=== PATIENT | male | born 1950 | race Caucasian/White ===

== ENCOUNTER 2023-04-20 09:38 | Outpatient (CLI) | payer MEDICARE, OTHER ==
--- NOTE | 2023-04-20 10:14 | Sleep Patient Instructions ---
Sleep Center Visit Summary - Patient Visit Information Reason for Visit: Initial consultation - Patient Instructions Instructions Attached: Sleep Study, Sleep Clinic Visit Additional Instructions: You will be completing a sleep study, either an in-lab polysomnography (PSG) or home sleep study (HST). You will follow-up in the sleep care office after the sleep study is completed to hear the results and talk about therapy, if needed. You will be called by our office staff to schedule this appointment, but you may contact us with any questions. - Clinic Information Contact: [facility] [address] [place] [address] [email or web address] T: [phone]
--- NOTE | 2023-04-20 10:21 | SLEEP CARE CONSULTATION ---
Information from patient questionnaire entered by Lisbeth Griffin. I have reviewed and concur with the information entered by Lisbeth Griffin. This document represents the service I personally performed and the decisions made by me, Shira Olmedo ARNP. History of Present Illness Service Date and Time: 04/20/2023 0938 Reason for Visit: New patient, Previously diagnosed sleep apnea, Re-establish care Chief Complaint: reports: Snoring, Observed pauses in breathing, Frequent awakenings at night Date of Onset: 10YRS Usual bedtime: 1030PM Time it takes to fall asleep: 45MIN Snores at night: Yes Observed to quit breathing while asleep: Yes Sleeps alone due to snoring: Yes Number of times waking at night: 3 Reasons for waking at night: reports: Snoring, Bathroom. denies: Choking, Gasping for air Toss, Turn, or Twitch while sleeping: Yes Recalls having dreams: No Usually gets out of bed at: 07-0730 Feels refreshed in the morning: No Morning headache: No Sleepy or fatigued during the day: Yes (he gets sleepy when being sedentary) Ever fallen asleep while driving: No Takes day naps: No Dreams during day naps: No Prior sleep studies: Yes Year and Where: 2013 [facility] Additional HPI information: RUTH CARBONE was previously diagnosed to have severe, AHI 62.8, obstructive sleep apnea-hypopnea syndrome in 2013 here at [facility] and comes in today to re- establish care. He returns today with complaints of frequent night awakenings, snoring and observed pauses in breathing. He had been placed on a CPAP but has not been using this for years. He only used the CPAP for about 6-8 months. He states the headgear was uncomfortable and would wake up feeling short of air. He has Parkinson's that was diagnosed about 12 years ago. He and his have resume sharing the same bed and his sleep is being affected by her snoring and his snoring is waking her up. He would like to be able to sleep better and wake up feeling rested. He comes back now to see if things have improved for treatment of his sleep apnea and if there might be other options. 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 Patient is and lives in [place]. Have you smoked in the past 12 months: No Alcohol use: Yes Alcohol amount and frequency: 6 DRINKS A MONTH Caffeine use: Yes Caffeine amount and frequency: 1 cup daily Family History Family history of sleep disordered breathing: Yes Family Hx Sleep Apnea: Mother: Snoring, Father: Snoring Allergies and Home Medications Known drug allergies: No Drug allergies reviewed: Yes Home medication list reviewed: Yes (see updated list in EMR) Review of Systems Weight loss over past 5 years: 70, in last year Cardiovascular: reports: high blood pressure Respiratory: denies: shortness of breath Gastrointestinal: denies: heartburn Urinary: reports: frequency, urgency Neurological: denies: headaches, seizure Psychiatric: reports: anxiety, depression Ear/Nose/Throat: reports: nasal congestion, wisdom teeth removed. denies: tonsillectomy Endocrine: reports: increased urination. denies: thyroid disease Immunologic: denies: allergies to food or environment Physical Exam Vital signs obtained and entered by: LISBETH Stevens MA Blood Pressure: 128/66 (LEFT ARM) Cuff size: regular Heart Rate: 65 O2 Saturation: 98 Height: 6 ft 2.5 in Weight: 209 lb Body Mass Index: 26.4 BMI Classification: Overweight Neck circumference: 16 Mouth and throat: narrow oropharynx Soft palate: long Hard palate: normal Uvula: normal Uvula visualization: 0% Mallampati Class IV Tongue: normal in size Tonsils: small Neck: normal w/o lymphadenopathy or thyromegaly Heart: regular rate and rhythm Lungs: clear bilaterally Impression and Plan 1. Obstructive Sleep Apnea-Hypopnea Syndrome, severe. Also as suggested by a history of loud and irregular snoring, observed cessation of breath while asleep, frequent awakening during the night, unrefreshed sleep, and excessive daytime sleepiness. I recommend proceeding to polysomnography to confirm the diagnosis and to assess severity. If the patient has significant sleep disordered breathing, a manual CPAP titration study will also be performed to find the optimal treatment pressure. I informed the patient of what the sleep studies involve and after some discussion, obtained agreement to proceed. The pathophysiology of obstructive sleep apnea-hypopnea syndrome was discussed with the patient and health risks of cardiovascular and cerebrovascular disease if not treated. 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 Patient agreed to plan. * Schedule polysomnography. * Avoid long distance driving or driving when feeling sleepy. * Avoid alcohol, sedative and muscle relaxant around bedtime. * Attempt to lose weight. * Review instructions provided by trained office staff on how to prepare for the sleep study. * Return for follow-up after sleep study completed. Counseling Topics: Weight loss health impact Visit Type: In Office Time Spent with Patient (minutes): 30 Provider Statement: I spent 100% of the Face to Face Visit with the patient with greater than 50% spent counseling the patient and coordination of care.
[2023-04-20 10:30] VITALS: BP 128/66; O2SAT 98
== END 2023-04-20 09:39 | disposition home or self-care (01) ==
LOC: SC 09:38
PROVIDERS: ATTEND Nurse Practitioner Family
DX: G47.33 Obstructive sleep apnea (adult) (pediatric) (principal); G20 Parkinson's disease; E66.3 Overweight; Z68.26 Body mass index [BMI] 26.0-26.9, adult
CPT/HCPCS: 99203; G0463; 99212

== ENCOUNTER 2023-06-19 19:39 | Outpatient (CLI) | payer MEDICARE, OTHER | END 2023-06-19 19:40 | disposition home or self-care (01) | LOC: SC 19:39 | PROVIDERS: ATTEND Nurse Practitioner Family | DX: G47.33 Obstructive sleep apnea (adult) (pediatric) (principal); G47.61 Periodic limb movement disorder; E66.3 Overweight; Z68.26 Body mass index [BMI] 26.0-26.9, adult | CPT/HCPCS: 95810 ==

== ENCOUNTER 2023-07-13 09:25 | Outpatient (CLI) | payer MEDICARE, OTHER ==
--- NOTE | 2023-07-13 10:22 | Sleep Patient Instructions ---
Sleep Center Visit Summary - Patient Visit Information Reason for Visit: Sleep Study Followup - Patient Instructions Instructions Attached: Apnea Sleep Mouthpieces Additional Instructions: You have opted for an oral mandibular appliance with positional therapy to control your sleep apnea. A list of certified dentists in the area was provided for you to find a dentist to have your oral appliance made. Once you have the device, please call and make a follow up appointment. We need to see you after you have been using the appliance for a month. We will evaluate your response to therapy and order a follow up sleep study to check efficiency of treatment. Please call office to schedule a follow up appointment in the sleep care office one month after obtaining new device. - Clinic Information Contact: [facility] [address] [place] [address] [email or web address] T: [phone]
--- NOTE | 2023-07-13 10:27 | SLEEP CARE CONSULTATION ---
Information from patient questionnaire entered by Lorrie Griffin. I have reviewed and concur with the information entered by Lorrie Griffin. This document represents the service I personally performed and the decisions made by me, Shira Olmedo ARNP. History of Present Illness Service Date and Time: 07/13/2023 09 Accompanied by: Spouse Initial [place] Sleepiness Scale score: 13 Current [place] Sleepiness Scale score: 11 Additional HPI information: RUTH CARBONE returns with spouse for follow up and results of the recently performed polysomnography. The sleep study showed moderate obstructive sleep apnea with an average AHI of 21.2 and erica oxygen saturation of 82%. He had moderate PLMs that did not contribute to sleep fragmentation. I explained the pathophysiology behind obstructive sleep apnea. We then spent quite a bit of time discussing different treatment options. For mild obstructive sleep apnea, surgery and oral appliance are alternatives to nasal CPAP therapy but in moderate or severe cases, nasal CPAP is the most effective and reliable treatment. Because apnea is primarily in supine position, then positional management therapy could be effective. Methods discussed such as positioning with pillows, using a T-shirt with tennis balls in the back or commercial products that have a pillow format on back to prevent supine sleep. I reviewed the impact of weight changes on sleep apnea and strongly recommended losing weight. Patient counseled not drink alcohol less than 4 hours before bedtime as it can increase snoring and apnea. Patient was cautioned about risks of drowsy driving until sleepiness symptoms resolve. Patient denies drowsy driving. Sleep Study - Results Type of Sleep Study: Polysomnography (COMPLETED 06/19/23) Prior sleep studies: Yes Year and Where: 2013 [facility] Polysomnography/Home Sleep Study results: IMPRESSION: The quality of the study is good. The patient had reduced sleep efficiency due to a prolonged awakening in the second half of the study. The sleep architecture was abnormal for sleep fragmentation and lack of REM sleep. Respiratory monitoring showed moderate obstructive sleep apnea- hypopnea (AHI = 21.2) associated with frequent arousals, oxyhemoglobin desaturation and mild hypoxia (erica oxygen saturation of 82%). The respiratory events occurred almost exclusively during supine sleep (supine AHI = 33.3; non-supine = 3.26). Snore was light to loud in intensity. There was moderate periodic leg movement of sleep not contributing to the sleep fragmentation. Cardiac rhythm was normal sinus rhythm with frequent premature atrial contractions. No abnormal behavior (parasomnia) observed during the night. Allergies and Home Medications Known drug allergies: No Drug allergies reviewed: Yes Home medication list reviewed: Yes (no changes) Allergy and home medication list: Allergies No Known Drug Allergies Allergy (Verified 07/12/23 11:16) Review of Systems Review of systems same as previous: Yes (no changes) Physical Exam Vital signs obtained and entered by: SHIRA CASTELLONP-C Blood Pressure: 141/77 Cuff size: wrist (right) Heart Rate: 72 O2 Saturation: 97 Height: 6 ft 2.5 in Weight: 208 lb 3.2 oz Body Mass Index: 26.4 BMI Classification: Overweight Impression and Plan 1. Obstructive Sleep Apnea-Hypopnea Syndrome, moderate, with lowest oxygen saturation of 82%. His previous sleep study in 2013 had AHI of 62.8, very severe YUSUF. Obviously this is the cause of the patients symptoms of unrefreshed sleep, and excessive daytime sleepiness. Positive pressure therapy could benefit hypertension, depression and anxiety. As mentioned above, the patient chose an oral appliance to treat their apnea. A 3 month follow up will be made to see if appliance has reduced symptoms. If so, another polysomnography will be ordered with use of the oral appliance to check efficacy in reducing apnea. Until patient is able to use the oral appliance, positional therapy is advised to avoid supine sleep with pillow positioning or one of the commercial products because apnea is more severe supine. 2. Hypoxemia, mild, with a erica oxygen saturation of 82% and 1.6 minutes spent under 90%. The baseline oxygen saturation was normal with an average oxygen saturation of 94%. 3. Periodic limb movement, moderate, that did not fragment patients sleep. Periodic limb movement of sleep (PLMS) is characterized by episodes of repetitive limb movements that occur during sleep and usually involve the lower limbs. The etiology is unknown. Patient was advised that no treatment is needed at this time. If symptoms increase, then further evaluation is indicated. 4. Overweight, unspecified. Currently patients BMI is 26.4. He has lost 60 pounds in last year. Obesity increases the risk of apnea, CPAP pressure requirements and overall health risks especially cardiovascular and diabetes. Thus patient is advised to continue to lose weight. * Oral Appliance with positional therapy * Maintain healthy weight. * Avoid alcohol consumption near bedtime. * Avoid supine sleep. * The patient is again cautioned about driving until sleepiness completely resolves. * Return one month after Oral appliance obtained. I will assess response to therapy at that time. Counseling Topics: Sleeping position, Weight loss health impact Prescriptions: Other (Oral Appliance) Visit Type: In Office Time Spent with Patient (minutes): 20 Provider Statement: I spent 100% of the Face to Face Visit with the patient with greater than 50% spent counseling the patient and coordination of care.
[2023-07-13 10:32] VITALS: BP 141/77; O2SAT 97
== END 2023-07-13 09:26 | disposition home or self-care (01) ==
LOC: SC 09:25
PROVIDERS: ATTEND Nurse Practitioner Family
DX: G47.33 Obstructive sleep apnea (adult) (pediatric) (principal); R09.02 Hypoxemia; G47.61 Periodic limb movement disorder; E66.3 Overweight; Z68.26 Body mass index [BMI] 26.0-26.9, adult
CPT/HCPCS: 99213; G0463; 99212